=== PATIENT | female | born 1990 | race Caucasian/White ===

== ENCOUNTER 2020-09-18 10:35 | Observation (INO) ==
[2020-09-18] MEDS ORDERED: BETAMETH SODIUM PHOS/ACETATE 30 MG/5 ML VIAL ONE (10:50)
[2020-09-18] MEDS: BETAMETH SODIUM PHOS/ACETATE 30 MG/5 ML VIAL IM SCH (11:07)
[2020-09-18 12:02] LABS: Bilirubin,Urine Negative (Negative); Blood, Urine Negative (Negative); Glucose,Urine (UA) Negative (Negative); Ketones,Urine Negative (Negative); Mucus,Urine Occasional /LPF (Occasional); Nitrite,Urine Negative (Negative); Protein,Urine Negative; RBC,Urine 10 /HPF (0-4); Squamous Epithelial Cell,Urine Few /HPF (0-10); Urine Appearance CLEAR (Clear); Urine Color Yellow (Yellow); Urine Specific Gravity 1.014 (1.001-1.035); Urine Urobilinogen < 2.0 EU/DL (0.2-1.0)
[2020-09-18] MEDS: LACTATED RINGERS 1,000 ML IV SCH ×2 (12:56→17:18)
[2020-09-18] MEDS: ACETAMINOPHEN 500 MG TABLET PO PRN (19:34)
[2020-09-19] MEDS: ACETAMINOPHEN 500 MG TABLET PO PRN (03:51)
[2020-09-19] MEDS: LACTATED RINGERS 1,000 ML IV SCH (03:51)
[2020-09-19 07:59] VITALS: BP 106/67
[2020-09-19] MEDS: BETAMETH SODIUM PHOS/ACETATE 30 MG/5 ML VIAL IM SCH (09:25)
== END 2020-09-19 10:31 | disposition home or self-care (01) ==
LOC: N.LD 10:35 → N.LDOUT 10:35 → N.LD 10:37
PROVIDERS: ADMIT Obstetrics & Gynecology; ATTEND Obstetrics & Gynecology

== ENCOUNTER 2020-11-28 06:07 | Inpatient (IN) ==
[2020-11-28] MEDS ORDERED: ONDANSETRON 4 MG/2 ML VIAL IV PRN (06:18)
[2020-11-28] MEDS ORDERED: LACTATED RINGERS 500 ML IV PRN (06:18)
[2020-11-28] MEDS ORDERED: BUTORPHANOL 2 MG/ML VIAL IV PRN (06:18)
[2020-11-28] MEDS ORDERED: MEPERIDINE 50 MG/1 ML VIAL IV PRN (06:18)
[2020-11-28 06:48] LABS: Basophils # 0.1 10*3/uL (0.0-0.2); Basophils % 1.1 % (0.0-0.8); Eosinophils # 0.2 10*3/uL (0.0-0.87); Eosinophils % 1.7 % (0.00-10.9); Hematocrit 39.4 VOL% (35.7-47.0); Hemoglobin 13.3 GM/DL (12.0-16.0); Immature Granulocytes % 1.1 %; Lymphocytes # 1.8 10*3/uL (1.4-4.0); Lymphocytes % 19.5 % (21.3-54.2); Mean Corpuscular HGB Conc 33.8 GM/DL (32-36); Mean Corpuscular Volume 93.4 FL (87-102); Mean Platelet Volume 11.1 FL (9.6-12.0); Monocytes % 11.6 % (1.7-12.7); Platelet Count 262 T/CUMM (130-400); Red Blood Count 4.22 MC/CUMM (3.8-5.5); Red Cell Distribution Width 13.1 % (9.3-17.3); White Blood Count 9.1 T/CUMM (4-12)
[2020-11-28 07:21] LABS: Albumin 2.8 G/DL (3.4-5.0); Bilirubin,Total 0.4 MG/DL (0.20-1.00); Calcium 8.5 MG/DL (8.5-10.1); Potassium 3.8 MMOL/L (3.5-5.1); Total Protein 7.1 G/DL (6.4-8.2)
[2020-11-28] MEDS: LACTATED RINGERS 1,000 ML IV SCH ×2 (07:50→10:01)
[2020-11-28] MEDS: OXYTOCIN/LR 20 UNIT/1,000 ML BAG IV SCH ×2 (08:10→13:34)
[2020-11-28] MEDS ORDERED: CITRIC ACID/SODIUM CITRATE 30 ML UDCUP PO ONE (09:32)
[2020-11-28] MEDS ORDERED: FAMOTIDINE 20 MG/2 ML VIAL IV ONE (09:32)
[2020-11-28] MEDS ORDERED: NALOXONE 0.4 MG/ML VIAL IV PRN (09:33)
[2020-11-28] MEDS ORDERED: ePHEDrine 50 MG/ML VIAL IV PRN (09:33)
[2020-11-28] MEDS ORDERED: fentaNYL 2 MCG/ROPIV 0.2% EPID 100 ML EPIDURAL SCH (10:00)
[2020-11-28] MEDS ORDERED: METHYLERGONOVINE 0.2 MG/1 ML AMP ONE (11:19)
[2020-11-28] MEDS ORDERED: miSOPROStoL 200 MCG TABLET ONE (11:19)
[2020-11-28] MEDS ORDERED: TRANEXAMIC ACID 1,000 MG/10 ML VIAL ONE (11:19)
[2020-11-28] MEDS ORDERED: CARBOPROST TROMETHAMINE 250 MCG/ML AMP IM ONE (11:20)
[2020-11-28 11:49] LABS: Cord Arterial Blood HCO3 20.6 MMOL/L
[2020-11-28 11:53] LABS: Cord Venous Blood HCO3 22.8 MMOL/L; Cord Venous Blood PCO2 49.2 MMHG; Cord Venous Blood PO2 23.9
[2020-11-28] MEDS: IBUPROFEN 800 MG TABLET PO PRN (15:42)
[2020-11-28] MEDS: oxyCODONE/ACETAMINOPHEN 5-325 MG TABLET PO PRN ×2 (15:43→20:20)
[2020-11-28] MEDS: BENZOCAINE 20%/MENTHOL 0.5% SPRAY 56 GM CAN TOP PRN (15:45)
[2020-11-28] MEDS: WITCH HAZEL PADS 100/JAR TOP PRN (15:45)
[2020-11-28] MEDS: DOCUSATE SODIUM 100 MG CAPSULE PO SCH (20:41)
[2020-11-29] MEDS: IBUPROFEN 800 MG TABLET PO PRN ×4 (01:30→22:43)
[2020-11-29 06:47] LABS: Basophils # 0.1 10*3/uL (0.0-0.2); Basophils % 0.8 % (0.0-0.8); Eosinophils # 0.1 10*3/uL (0.0-0.87); Hematocrit 34.2 VOL% (35.7-47.0); Immature Granulocytes % 0.8 %; Immature Granulocytes Absolute 0.11 #; Lymphocytes # 1.5 10*3/uL (1.4-4.0); Lymphocytes % 11.6 % (21.3-54.2); Mean Corpuscular HGB Conc 32.5 GM/DL (32-36); Mean Corpuscular Volume 96.6 FL (87-102); Mean Platelet Volume 11.3 FL (9.6-12.0); Monocytes % 10.5 % (1.7-12.7); Neutrophils % 75.3 % (38.7-73.9); Red Blood Count 3.54 MC/CUMM (3.8-5.5); Red Cell Distribution Width 13.2 % (9.3-17.3)
[2020-11-29 06:50] LABS: Hemoglobin 11.1 GM/DL (12.0-16.0); Platelet Count 198 T/CUMM (130-400); White Blood Count 13.1 T/CUMM (4-12)
[2020-11-29] MEDS: MULTIVITAMIN (PRENATAL) TABLET PO SCH (08:15)
[2020-11-29] MEDS: oxyCODONE/ACETAMINOPHEN 5-325 MG TABLET PO PRN ×3 (08:15→22:43)
[2020-11-29] MEDS: DOCUSATE SODIUM 100 MG CAPSULE PO SCH ×2 (08:16→21:07)
[2020-11-29] MEDS: SERTRALINE 50 MG TABLET PO SCH (09:30)
[2020-11-29] MEDS ORDERED: SERTRALINE 50 MG TABLET PO SCH (17:00)
[2020-11-30] MEDS: MULTIVITAMIN (PRENATAL) TABLET PO SCH (08:16)
[2020-11-30] MEDS: DOCUSATE SODIUM 100 MG CAPSULE PO SCH (08:16)
[2020-11-30] MEDS: SERTRALINE 50 MG TABLET PO SCH (08:17)
[2020-11-30] MEDS: WITCH HAZEL PADS 100/JAR TOP PRN (08:17)
[2020-11-30] MEDS: BENZOCAINE 20%/MENTHOL 0.5% SPRAY 56 GM CAN TOP PRN (08:18)
[2020-11-30] MEDS: IBUPROFEN 800 MG TABLET PO PRN (10:00)
[2020-11-30] MEDS: oxyCODONE/ACETAMINOPHEN 5-325 MG TABLET PO PRN (10:01)
[2020-11-30 10:54] VITALS: BP 121/75
== END 2020-11-30 12:50 | disposition home or self-care (01) | DRG 768 ==
LOC: N.LD 06:07 → N.OB 14:54
PROVIDERS: ADMIT Obstetrics & Gynecology; ATTEND Obstetrics & Gynecology